=== PATIENT | female | born 1995 | race Caucasian/White ===

== ENCOUNTER 2017-02-05 13:05 | Emergency (ER) | payer MEDICAID ==
--- NOTE | 2017-02-05 13:36 | ED Physician Chart ---
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 About a month ago, the tips of all her fingers began to develop dry skin which came off with itchiness. The patient tried skin cream and the symptoms improved for one month until about a week ago when the dry skin and itchiness became worse. Allergies:: Allergies Allergy/AdvReac Type Severity Reaction Status Date / Time Penicillins [PCN] Allergy Verified 02/04/16 13:54 Vitals:: Vital Signs - 8 hr 02/05/17 02/05/17 13:07 13:24 Temp 98.2 F HR 65 80 RR 16 16 BP 108/65 108/65 O2 Sat % 98 98 ED Review of Systems - Review of Systems General/Constitutional: No fever, No chills Skin: Skin lesions Head: No headache Eyes: No loss of vision ENT: No earache Neck: No neck pain Cardio Vascular: No chest pain Pulmonary: No SOB GI: No nausea, No vomiting G/U: No dysuria Musculoskeletal: No bone or joint pain ED Past Medical History - Past Medical History Past Medical History: No significant medical hx Social History: Non Smoker, No Alcohol, No Drug Use Surgical History: None Family Medical History - Family Member Mother Hx Family Cancer: No Hx Family Coronary Artery Disease: No Hx Family Congestive Heart Failure: No Hx Family Hypertension: No Hx Family Stroke: No Hx Family Diabetes: No Hx Family Seizures: No Hx Family AIDS: No Hx Family HIV: No Hx Family COPD: No Hx Family Psychiatric Problems: No Hx Family Tuberculosis: No ED Physical Exam - Physical Examination General/Constitutional: Awake, Alert Head: Atraumatic Eyes: PERRL, EOMI Other Skin comments:: The skin on tips of all her fingers were dry, coming off in various shape and size, with erythema and itchiness ENMT: Nasal exam nl Neck: Nontender, No nuchal rigidity Respiratory: Clear to Auscultation, No Wheeze/Rhonchi/Rales Cardio Vascular: RRR, No murmur, gallop, rubs, NL S1 S2 GI: Normal BS's Extremities: normal strength in all extremities Neuro/Psych: No focal deficits ED Assessment - Assessment General Assessment: [facility] Critical Care Time: 30 min Excludes all billable procedures: Yes This condition life threatening/high prob of deterioration: No Assessment/Comments:: Diflucan 100mg PO x 1 D/c home Ketoconazole 2% cream bid x 2 weeks F/u PCP or return to ER if symptoms worsen ED Septic Shock - . Is Septic Shock (SBP<90, OR Lactate>4 mmol\L) present?: No - <6hrs of presentation: Vital Signs: Vital Signs - 8 hr 02/05/17 02/05/17 13:07 13:24 Temp 98.2 F HR 65 80 RR 16 16 BP 108/65 108/65 O2 Sat % 98 98 ED Reassessment (Disposition) - Reassessment Reassessment Condition:: Unchanged - Aftercare/Follow up Instructions Aftercare/Follow-Up Instructions:: Counseled pt regarding lab results/diagnosis & need follow up, Refer to Discharge Instructions - Patient Disposition Discharge/Transfer:: Home ED Discharge Plan - Patient Disposition Admit/Discharge/Transfer: PT DISCHARGED HOME Condition at Disposition: Stable Prescriptions: Ketoconazole 2% Cream [Nizoral 2% Cream] 1 appl TP BID #30 gm Instructions: Body Ringworm Forms: Work Release Form
== END 2017-02-05 14:25 | disposition home or self-care (01) ==
LOC: ER 13:05
DX: L29.9 Pruritus, unspecified (principal); Z88.0 Allergy status to penicillin
CPT/HCPCS: Z7502